=== PATIENT | female | born 1970 | race Caucasian/White ===

== ENCOUNTER 2016-03-13 14:10 | Emergency (ER) | payer OTHER ==
[~2016-03-13] VITALS: Ht 167.6 cm; Wt 85.7 kg
[~2016-03-13 14:10] MED LIST: ALBUTEROL SULF8.5 GM IH; ALPRAZOLAM1 MG PO; ALPRAZOLAM2 MG PO; ASPIRIN EC325 MG PO; ATORVASTATIN CA80 MG PO; AUGMENTIN875 MG PO; B COMPLETE1 EACH PO; BACLOFEN10 MG PO; BACTRIM,SEPT1 TABLET PO; BIOTIN800 MCG PO; CALCITRATE + D1 EACH PO; CALCIUM CITRAT200 MG PO; CALCIUM CITRAT250 MG PO; CALTRATE 6001 TABLE1 PO; CHOLESTEROL; CLOPIDOGREL75 MG PO; DICLOFENAC; DILAUDID2 MG PO; DIVALPROEX SOD500 M1 PO; DOXEPIN HCL100 MG PO; ECOTRIN325 MG PO; ESSENTIAL DAIL1 EACH PO; FIORICET,ESG1 TABLET PO; FLOMAX0.4 MG PO; FLUOXETINE HCL20 MG PO; FOLTX TABLET1 EAC1 PO; Folic Acid PO; GLUCOSA-CHOND-1 EACH PO; GUMMY SWIRLS1 EACH PO; HYDROCODON-ACE1 EAC7 PO; INDERAL20 MG PO; INDOCIN25 MG PO; KEFLEX250 MG/5 M PO; KEFLEX500 MG PO; LEVOTHYROXINE137 MCG PO; LEVOTHYROXINE150 MCG PO; LEVOTHYROXINE175 MCG PO; LOPRESSOR25 MG PO; MEDROL DOSEPAK4 MG PO; METFORMIN HCL500 MG PO; METOPROLOL TART25 MG PO; MOBIC15 MG PO; MOTRIN800 MG PO; MULTIVITAMIN1 EAC1 PO; NABUMETONE500 MG PO; NITROSTAT0.4 MG SL; ONE DAILY WOME1 EACH PO; OXYBUTYNIN CHLOR5 M1 PO; OXYCODONE HCL10 MG PO; OXYCODONE HCL5 MG PO; PERCOCET 5/31 TABLET PO; PERCOCET 7.51 TABLET PO; PLAVIX75 MG PO; PRAVACHOL40 MG PO; PYRIDIUM100 MG PO; TAMIFLU75 MG PO; TESSALON200 MG PO; THYROID; TIZANIDINE HCL2 M1 PO; TIZANIDINE HCL4 MG PO; TOPAMAX50 MG PO; VITAMIN B-12250 MCG PO; VITAMIN D-32000 UNI2 PO; VITAMIN D1000 INTUN PO; VITAMIN D2000 INTUN PO; ZANAFLEX4 M1 PO; ZITHROMAX Z-PA250 MG PO; ZOFRAN4 MG PO; ZOLOFT25 MG PO; ZYRTEC10 M2 PO
[2016-03-13] MEDS ORDERED: CLOPIDOGREL75 MG PO (14:50)
[2016-03-13] MEDS ORDERED: FIORICET 50-301 EACH PO (16:36)
[2016-03-13 16:46] VITALS: BP 106/71
== END 2016-03-13 16:47 | disposition home or self-care (01) ==
LOC: EME 14:10
DX: S09.90XA Unspecified injury of head, initial encounter (principal); S06.0X9A Concussion with loss of consciousness of unspecified duration, initial encounter; W22.8XXA Striking against or struck by other objects, initial encounter; Y92.008 Other place in unspecified non-institutional (private) residence as the place of occurrence of the external cause; E78.5 Hyperlipidemia, unspecified; J45.909 Unspecified asthma, uncomplicated; F17.200 Nicotine dependence, unspecified, uncomplicated; Z95.5 Presence of coronary angioplasty implant and graft; Z91.040 Latex allergy status; Z88.6 Allergy status to analgesic agent; Z88.8 Allergy status to other drugs, medicaments and biological substances
CPT/HCPCS: 70450; 99281; 99284

== ENCOUNTER 2016-07-21 09:07 | Emergency (ER) | payer OTHER ==
[~2016-07-21] VITALS: Ht 167.6 cm; Wt 82.6 kg
[~2016-07-21 09:07] MED LIST changes: +FIORICET 50-301 EACH PO
[2016-07-21 11:09] LABS: HEMATOCRIT 43.5 % (36.0-46.0); MCH 31.1 PG (29.0-34.0); MCHC 33.6 G/DL (30.0-36.0); MCV 92.8 FL (83-99); MEAN PLAT.VOLUME 10.6 uM^3 (9.5-12.4); PLATELET COUNT 289 K/uL (156-360); RBC DIS.WIDTH-CV 12.8 % (11.8-14.6); RBC DIS.WIDTH-SD 43.7 % (39-53); RED BLOOD COUNT 4.69 M/uL (3.80-5.20)
[2016-07-21 11:14] LABS: WHITE BLOOD COUNT 7.9 K/uL (4.1-10.2)
[2016-07-21 12:13] VITALS: BP 107/84
== END 2016-07-21 12:15 | disposition home or self-care (01) ==
LOC: EME 09:07
PROVIDERS: Emergency Medicine
DX: R51 Headache (principal); I25.10 Atherosclerotic heart disease of native coronary artery without angina pectoris; I25.2 Old myocardial infarction; Z95.5 Presence of coronary angioplasty implant and graft; J45.909 Unspecified asthma, uncomplicated; E78.5 Hyperlipidemia, unspecified; E03.9 Hypothyroidism, unspecified; F32.9 Major depressive disorder, single episode, unspecified; Z85.828 Personal history of other malignant neoplasm of skin; F17.200 Nicotine dependence, unspecified, uncomplicated
CPT/HCPCS: 80048; 84439; 84443; 85027; 93005; 99281; 99285; J0780; J1200; J1885; J7030